=== PATIENT | female | born 1980 | race Hispanic/Latino ===

== ENCOUNTER 2017-11-28 19:12 | Emergency (ER) | payer SELFPAY ==
[2017-11-28 20:29] VITALS: TEMP 98
--- NOTE | 2017-11-28 21:23 | ED.PDOC ---
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 She reports that her last menstrual period started on October 04. This puts her around 8-1/2 weeks gestational age. She reports that she started having spotting about 1 week ago. The bleeding got heavier where she passed a few clots tonight. Some of the clots appear to possibly have some membrane in them. She does not appear to have any uncontrolled hemorrhaging. Vital signs are stable. Ultrasound by me. Transabdominal only of the uterus shows no obvious gestational sac or fetus. There does appear to be some debris in the uterine cavity. The patient does not want a man to do her pelvic exam so she has deferred that, as there are no female physicians here tonight. Given the fact that she is not bleeding significantly that is not entirely unreasonable. She has had a miscarriage before. She has not seen an core dropper for this . Timing/Duration: 1 week Severity: moderate Improving Factors: nothing Worsening Factors: nothing Associated Symptoms: denies symptoms Allergies/Adverse Reactions: Allergies NO KNOWN ALLERGY Allergy (Verified 11/28/17 20:28) Home Medications: Ambulatory Orders NK [NK] 11/28/17 Review of Systems - Review of Systems Constitutional: States: no symptoms reported EENTM: States: no symptoms reported Respiratory: States: no symptoms reported Cardiology: States: no symptoms reported Gastrointestinal/Abdominal: States: no symptoms reported Genitourinary: States: see HPI Musculoskeletal: States: no symptoms reported Skin: States: no symptoms reported Neurological: States: no symptoms reported Endocrine: States: no symptoms reported All other Systems: No Change from Baseline Past Medical History (General) - Patient Medical History Hx Seizures: No Hx Stroke: No Hx Dementia: No Hx Asthma: No Hx of COPD: No Hx Cardiac Disorders: No Hx Congestive Heart Failure: No Hx Pacemaker: No Hx Hypertension: No Hx Thyroid Disease: No Hx Diabetes: No Hx Gastroesophageal Reflux: No Hx Renal Disease: No Hx of HIV: No Hx MRSA: No Surgical History: cholecystectomy - Vaccination History Hx Tetanus, Diphtheria Vaccination: No Hx Influenza Vaccination: No Hx Pneumococcal Vaccination: No - Social History Hx Tobacco Use: No Hx Alcohol Use: No Hx Substance Use: No Hx Substance Use Treatment: No Hx Depression: No - Female History Hx Last Menstrual Period: 10/04/17 Patient : Yes Family Medical History - Family History Mother Family History: No Known Physical Exam - Physical Exam General Appearance: Alert, Comfortable, No apparent distress Eye Exam: bilateral normal Ears, Nose, Throat: hearing grossly normal Neck: full range of motion Respiratory: normal breath sounds, no respiratory distress, no accessory muscle use Cardiovascular/Chest: normal peripheral pulses, regular rate, rhythm, no edema Peripheral Pulses: radial,right: 2+, radial,left: 2+, dorsalis pedis,right: 2+, dorsalis pedis,left: 2+ Gastrointestinal/Abdominal: non tender, soft Rectal Exam: deferred - the patient defers a pelvic exam Back Exam: normal inspection Extremity: normal range of motion, non-tender, normal inspection, no pedal edema , normal capillary refill 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 She is approximately 8-1/2 weeks along by gestational dates. Her blood type per our records is A positive. She is not anemic. Her serum hCG is 9000 today. The patient has passed a few blood clots and what may be a small amount of membrane. This will be sent to pathology. She needs to follow-up with a doctor of her choosing to repeat the serum hCG on Thursday. ER warnings were given for any uncontrolled bleeding. She should expect to still have some bleeding for another couple of days. 3-6 weeks of pelvic rest is recommended. - Results/Orders Results/Orders: Laboratory Results - last 24 hr 11/28/17 11/28/17 20:15 20:15 WBC 7.3 RBC 4.47 Hgb 11.8 L Hct 36.4 MCV 81.2 MCH 26.3 L MCHC 32.4 L RDW 15.9 H Plt Count 161 MPV 10.2 Absolute Neuts (auto) 5.40 Absolute Lymphs (auto) 1.40 Absolute Monos (auto) 0.50 Absolute Eos (auto) 0.10 Absolute Basos (auto) 0.10 Neutrophils % 72.9 Lymphocytes % 18.8 L Monocytes % 6.5 Eosinophils % 1.1 Basophils % 0.7 Beta HCG, Quant 9000.0 H Departure - Departure Clinical Impression: Threatened miscarriage in early Disposition: Discharge to Home or Self Care Condition: Fair Departure Forms: ED Discharge - Pt. Copy, Patient Portal Self Enrollment Instructions: DI for Threatened Diet: regular diet Activity: increase activity as tolerated Home Medications: Ambulatory Orders NK [NK] 11/28/17 Additional Instructions: the patient is a 37-year-old female presenting to emergency room with what appears to be a threatened miscarriage. She is approximately 8-1/2 weeks along by gestational dates. Her blood type per our records is A positive. She is not anemic. vital signs are stable. Her serum hCG is 9000 today. The patient has passed a few blood clots and what may be a small amount of membrane. This will be sent to pathology. low resolution transabdominal ultrasound here tonight fails to show a definitively viable intrauterine . She needs to follow-up with a doctor of her choosing to repeat the serum hCG on Thursday. ER warnings were given for any uncontrolled bleeding. She should expect to still have some bleeding for another couple of days. 3-6 weeks of pelvic rest is recommended.
[2017-11-28 22:18] VITALS: BP 145/89; O2SAT 97
== END 2017-11-28 21:55 | disposition home or self-care (01) ==
LOC: ER 19:12
DX: O20.0 Threatened abortion (principal); Z3A.08 8 weeks gestation of pregnancy

== ENCOUNTER 2018-04-12 16:28 | Emergency (ER) | payer MEDICAID, OTHER ==
--- NOTE | 2018-04-12 17:56 | ED.PDOC ---
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 C/O VAGINAL BLEEDING. SLIGHTLY MORE THAN SPOTTING BUT NOT HEAVY A PERIOD. MILD CRAMPING. HAS HAD US AT OB'S OFFICE CONFIRMING IUP. - History of Present Illness Timing/Duration: other - TODAY, BUT HAS HAD SPOTTING PREVIOUS Severity: mild Improving Factors: nothing Associated Symptoms: denies symptoms Allergies/Adverse Reactions: Allergies NO KNOWN ALLERGY Allergy (Verified 04/12/18 17:09) Home Medications: Ambulatory Orders NK [NK] 11/28/17 Review of Systems - Review of Systems Constitutional: Denies: chills, fever EENTM: States: no symptoms reported Respiratory: Denies: cough, short of breath, wheezing Cardiology: Denies: chest pain, palpitations, syncope Gastrointestinal/Abdominal: States: abdominal pain. Denies: diarrhea, nausea, vomiting Genitourinary: Denies: dysuria, hematuria Musculoskeletal: States: no symptoms reported Skin: States: no symptoms reported Neurological: States: no symptoms reported Endocrine: States: no symptoms reported Hematologic/Lymphatic: States: no symptoms reported Past Medical History (General) - Patient Medical History Hx Seizures: No Hx Stroke: No Hx Dementia: No Hx Asthma: No Hx of COPD: No Hx Cardiac Disorders: No Hx Congestive Heart Failure: No Hx Pacemaker: No Hx Hypertension: No Hx Thyroid Disease: No Hx Diabetes: No Hx Gastroesophageal Reflux: No Hx Renal Disease: No Hx of HIV: No Hx MRSA: No Surgical History: cholecystectomy - Vaccination History Hx Tetanus, Diphtheria Vaccination: No Hx Influenza Vaccination: No Hx Pneumococcal Vaccination: No - Social History Hx Tobacco Use: No Hx Alcohol Use: No Hx Substance Use: No Hx Substance Use Treatment: No Hx Depression: No - Female History Hx Last Menstrual Period: 01/31/18 Patient : Yes Hx Gestational Age: 9 Family Medical History - Family History Mother Family History: No Known Physical Exam - Physical Exam General Appearance: No apparent distress, Obese Eye Exam: bilateral normal Ears, Nose, Throat: hearing grossly normal, normal ENT inspection Neck: full range of motion, supple Respiratory: lungs clear, no respiratory distress Cardiovascular/Chest: regular rate, rhythm, no murmur Gastrointestinal/Abdominal: non tender, soft, no organomegaly, other - PELVIC, NL EXT, NO BLEEDING, OS CL, NO D/C UTX MIDLINE, NO ADNEXAL MASSES/TTP Back Exam: normal inspection, no vertebral tenderness Extremity: normal range of motion, non-tender Neurologic: alert, normal mood/affect Skin Exam: normal color, warm/dry Lymphatic: no adenopathy Progress - EKG/XRAY/CT Xray Comments: SONO +IUP HR 185, [id number] Departure - Departure Clinical Impression: Threatened affecting intrauterine Time of Disposition: 22:21 Disposition: Discharge to Home or Self Care Condition: Good Departure Forms: ED Discharge - Pt. Copy, Patient Portal Self Enrollment Instructions: DI for Threatened Referrals: Talib Quiroga MD [Primary Care Provider] - 1-2 Days Home Medications: Ambulatory Orders NK [NK] 11/28/17
[2018-04-12] MEDS ORDERED: ACETAMINOPHEN 500 MG TAB PO ONE (18:32)
[2018-04-12 22:30] VITALS: BP 159/87; TEMP 98.7; O2SAT 97
--- NOTE | 2018-04-12 22:49 | US ---
EXAM DESCRIPTION: OB ,Early (0-14wks) CLINICAL HISTORY: vaginal bleeding patient is COMPARISON: None. FINDINGS: [ ] [transvaginal ] images of the pelvis were submitted. Single live IUP demonstrates estimated gestational age based on crown-rump length of eight weeks six days. Yolk sac is present. heart rate is 185 bpm. Uterus measures 11.5 x 10.2 x 7.9 cm. ZACKARY is 11/16/2018. IMPRESSION: Single live IUP as above. Electronically signed by: Pablo Brantley 04/12/2018 10:48 PM CDT
== END 2018-04-12 22:30 | disposition home or self-care (01) ==
LOC: ER 16:28
DX: O20.0 Threatened abortion (principal); Z3A.08 8 weeks gestation of pregnancy

== ENCOUNTER 2020-11-28 14:52 | Emergency (ER) | payer OTHER ==
--- NOTE | 2020-11-28 16:21 | US ---
EXAM DESCRIPTION: OB ,Early (0-14wks): Ultrasound. CLINICAL HISTORY: 40 years Female possible miscarriage. Obstetrical history unknown. September 14. EGA 10 weeks and 5 days. ZACKARY June 21. COMPARISON: No comparison OB ultrasounds for this gestation. TECHNIQUE: Endovaginal scanning: Steve-scale and Doppler modes. FINDINGS: Uterus: Anteverted. Uterus measures 10.9 x 6.8 x 7.2 cm colon estimated volume 277 mL. Endometrium not well defined and no fluid or gestational sac in the endometrial cavity. Heterogeneous myometrium. Hypoechoic mass in the posterior fundus measuring 2.8 x 3.6 x 2.4 cm nonvascular. . Gestational sac: Not seen. No fluid Cul-de-sac: No fluid. Comments: No intrauterine gestational sac and endometrium not well defined. Structure with possible cystic or channel-like anechoic regions, not definitely ovary. No adnexal mass or free fluid. Left ovary 3.6 x 2.7 x 2.5 cm. 12.8 mL. Normal waveform and color Doppler vascularity. 2.0 x 2.0 cm cystic structure with thin philippe and no internal echoes, posterior acoustic shadowing and not vascular.. No adnexal mass or free fluid. IMPRESSION: 1. Enlarged uterus with normal orientation. Endometrium not well defined and no intrauterine gestational sac in the endometrial cavity. 2. 2.0 cm cystic structure with simple features in the left ovary. Not vascular. Ectopic unlikely. Consider follow-up with serial beta-hCG measurements. Right ovary is visualized. No free fluid in the adnexa. Electronically signed by: Pablo Jones MD 11/28/2020 4:20 PM [facility]
[2020-11-28] MEDS ORDERED: ACETAMINOPHEN-CAFF-BUTALBITAL 1 EA TAB PO ONE (17:12)
--- NOTE | 2020-11-28 17:29 | ED.PDOC ---
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 The patient reports that she is somewhere between 7 and 11 weeks gestational age. The patient started having spotting almost 2 weeks ago. She went to [facility] emergency room 1 week ago and had a quantitative hCG done that was around 16,000 and apparently had a ultrasound done at that time as well. She was told they cannot find a heartbeat. She has continued to have some intermittent bleeding. No symptoms of anemia. No chest pain or shortness of breath. No significant tachycardia. She is pleasant and cooperative and in no acute distress. She does appear to have passed a very small amount of tissue here. Cervical os is open. I have discussed the patient with Dr. Reynaga from [facility], who has reviewed her ultrasound from their institution from 1 week ago, confirming an intrauterine at that time. His assistance is greatly appreciated. Her blood type is A+, known to be correct at this facility from 2 previous visits. Timing/Duration: other - 2 weeks Severity: moderate Improving Factors: nothing Worsening Factors: nothing Associated Symptoms: denies symptoms Allergies/Adverse Reactions: Allergies NO KNOWN ALLERGY Allergy (Verified 04/12/18 17:09) Home Medications: Ambulatory Orders Ohtxyersxikan-Hkju-Ktlgthrncw [Fioricet] 1 ea PO Q8H PRN #9 tab 11/28/20 metroNIDAZOLE [Flagyl] 1 tablet PO DAILY 11/28/20 Review of Systems - Review of Systems Constitutional: States: no symptoms reported EENTM: States: no symptoms reported Respiratory: States: no symptoms reported Cardiology: States: no symptoms reported Gastrointestinal/Abdominal: States: abdominal pain Genitourinary: States: see HPI Musculoskeletal: States: no symptoms reported Skin: States: no symptoms reported Neurological: States: no symptoms reported Endocrine: States: no symptoms reported All other Systems: No Change from Baseline Past Medical History (General) - Patient Medical History Hx Seizures: No Hx Stroke: No Hx Dementia: No Hx Asthma: No Hx of COPD: No Hx Cardiac Disorders: No Hx Congestive Heart Failure: No Hx Pacemaker: No Hx Hypertension: No Hx Thyroid Disease: No Hx Diabetes: No Hx Gastroesophageal Reflux: No Hx Renal Disease: No Hx of HIV: No Hx MRSA: No Surgical History: cholecystectomy - Vaccination History Hx Tetanus, Diphtheria Vaccination: No Hx Influenza Vaccination: No Hx Pneumococcal Vaccination: No - Social History Hx Tobacco Use: No Hx Alcohol Use: No Hx Substance Use: No Hx Substance Use Treatment: No Hx Depression: No - Female History Hx Last Menstrual Period: 01/31/18 Patient : Yes Hx Gestational Age: 9 Family Medical History - Family History Mother Family History: No Known Physical Exam - Physical Exam General Appearance: Alert, Comfortable, No apparent distress Eye Exam: bilateral normal Ears, Nose, Throat: hearing grossly normal, normal pharynx Neck: full range of motion, supple Respiratory: lungs clear, normal breath sounds, no respiratory distress, no accessory muscle use Cardiovascular/Chest: normal peripheral pulses, regular rate, rhythm, no edema Peripheral Pulses: radial,right: 2+, radial,left: 2+ Gastrointestinal/Abdominal: non tender - Obese, soft Rectal Exam: deferred, other - Pelvic exam shows an open cervical os. No visible products of conception. Minimal bleeding. 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 Pelvic ultrasound today shows no products of conception within the uterus itself. According to the copper flotation operator from [facility], 1 week ago she did have products of conception within the uterus. This does seem to confirm the completion. Serum hCG was 18,000 today. I do recommend that the patient have a repeat hCG in 2 to 4 weeks to confirm an appropriate drop. The patient will be written for some Fioricet for control of pain if needed. She is to keep her self well-hydrated. No clinical evidence of significant anemia at this time. The patient's blood type is a positive. ER warnings are given. She needs to avoid becoming for at least the next 3 to 4 months. I do recommend she start taking a vitamin daily. ulysses matute [id number] Departure - Departure Clinical Impression: Complete miscarriage Disposition: Discharge to Home or Self Care Condition: Fair Departure Forms: ED Discharge - Pt. Copy, Patient Portal Self Enrollment Instructions: Miscarriage (DC) Diet: regular diet Activity: increase activity as tolerated Prescriptions: Zajkprwbxqykr-Islg-Inwslrbliq [Fioricet] 1 ea PO Q8H PRN #9 tab PRN Reason: Pain Home Medications: Ambulatory Orders Jchujcihsvtzi-Xeuk-Tzewbdcgqu [Fioricet] 1 ea PO Q8H PRN #9 tab 11/28/20 metroNIDAZOLE [Flagyl] 1 tablet PO DAILY 11/28/20 Additional Instructions: The patient is a 40-year-old female presented emergency room secondary to what appears to be a completed miscarriage. Pelvic ultrasound today shows no products of conception within the uterus itself. According to the copper flotation operator from [facility], 1 week ago she did have products of conception within the uterus. This does seem to confirm the completion. Serum hCG was 18,000 today. I do recommend that the patient have a repeat hCG in 2 to 4 weeks to confirm an appropriate drop. The patient will be written for some Fioricet for control of pain if needed. She is to keep her self well-hydrated. No clinical evidence of significant anemia at this time. The patient's blood type is a positive. ER warnings are given. She needs to avoid becoming for at least the next 3 to 4 months. I do recommend she start taking a vitamin daily.
[2020-11-28 17:43] VITALS: TEMP 98
[2020-11-28 17:45] VITALS: BP 148/101; O2SAT 99
== END 2020-11-28 17:44 | disposition home or self-care (01) ==
LOC: ER 14:52
DX: O03.9 Complete or unspecified spontaneous abortion without complication (principal)